=== PATIENT | female | born 1955 | race Caucasian/White ===

== ENCOUNTER 2016-09-20 10:00 | Inpatient (IN) ==
[2016-09-20] MEDS ORDERED: SODIUM CHLORIDE 0.9% 1,000 ML IV STA (10:27)
[2016-09-20] MEDS ORDERED: PIPERACILLIN/TAZOBACTAM 3,375 MG in SODIUM CHLORIDE 0.9% 100 ML IV STA (10:40)
--- NOTE | 2016-09-20 11:00 | CT Report ---
Referring physician: Jovany Elise EXAM: CT abdomen and pelvis without contrast DATE: September 20, 2016 COMPARISON: CT abdomen and pelvis without contrast January 06, 2015 REASON: Abdominal distention and generalized abdominal pain, no bowel sounds TECHNIQUE: Axial images of the abdomen and pelvis were obtained without the use of contrast. Coronal and sagittal reformatted images were also provided. Total DLP is 670.0 mGy*cm. FINDINGS: Lower thorax: There are patchy opacities within the right middle lobe and right lower lobe and mild scattered opacities within the left lower lung zone. This is concerning for pneumonia and atelectasis. ABDOMEN: Liver: Unremarkable. Gallbladder and bile ducts: The patient is status post cholecystectomy. The common bile duct is upper normal in size but stable, likely secondary to the cholecystectomy status. Pancreas: Unremarkable. Spleen: Unremarkable. Adrenals: Unremarkable. Kidneys and ureters: No hydronephrosis is present, and no ureteral calculi are seen. There is minimal calcification at the right renal hilum, which is favored to be vascular. No definite renal calculi are seen. PELVIS: Bladder: The bladder is just distended but otherwise unremarkable. Reproductive: The uterus is not identified, suggesting hysterectomy. The ovaries are also not identified. ABDOMEN AND PELVIS: Bowel: The colon is mildly distended with air and mild fluid. This likely represents mild ileus. No definite bowel inflammation is seen. Appendix: The appendix is unremarkable. Vasculature: The abdominal aorta is normal in size. There is mild to moderate scattered calcified plaque at the arteries. Surgical change is seen at the right groin, and there is a stent at the right SFA. Peritoneum: No free air or ascites is seen. Lymph nodes: No suspicious adenopathy is seen. Abdominal/pelvic wall: There is surgical change at the right groin as mentioned above. There is also mild anasarca at the pelvis. Bones: There is multilevel degenerative change at the spine, mainly an at L2-L3. No acute osseous process is seen. IMPRESSION: 1. The colon is mildly distended with air and mild fluid. This likely represents mild ileus. 2. There are patchy opacities within the right middle lobe and right lower lobe and mild scattered opacities within the left lower lung zone. This likely represents pneumonia and atelectasis. Follow-up is recommended to confirm resolution. 3. Distended bladder. The CT exam was performed using one or more of the following dose reduction techniques: Automated exposure control and adjustment of the mA and/or kV according to patient size. PROCEDURE INTERPRETED AT [facility] DEPARTMENT OF RADIOLOGY Final Report Signed by: Dr. Yvrose Heart
--- NOTE | 2016-09-20 11:10 | Emergency Department Note ---
Olamide Burt Hilary, am scribing for, and in the presence of, Jovany Elise MD 10:25. Arik Burt Phillip K, MD, personally performed the services described in this documentation, ascribed by Claudia Quiñonez in my presence, and it is both accurate and complete . Arrival - Arrival Chief Complaint: Altered Mental Status Stated Complaint: Right side weakness ED Nursing Triage Note: Brought in by EMS-transfer from [place] ED for further evaluation of possible CVA. Last known well time 09/19/16 @ 2200. reports right side weakness and slurred speech. EMS reports that patient presented there with a 103 temp and sat in the 80's. Mode of Arrival: Stretcher Limitations: Altered Mental Status Source: Significant other (), EMS, RN Notes Reviewed - History of Present Illness HPI Narrative: Pt is a 61 y/o female brought into the ED via EMS transferred from [place] ED for further evaluation of possible CVA. Hx is limited due to AMS. Pts is in the room and confirms slurred speech and generalized weakness and Pt confirms abdominal pain. He states she wasn't feeling well last night so she went to bed and Last known well time 09/19/16 @ 2200. EMS reports that patient presented there with a 103 temp and sat in the 80's at [place] ED. Pt has a PMHx of HTN, Dyslipidemia, IDDM, Fibromyalgia. Onset (ago): hour(s) Date of Last Menstrual Period: hysterectomy Allergies/Adverse Reactions: Allergies Allergy/AdvReac Type Severity Reaction Status Date / Time azithromycin Allergy Intermediate RASH Verified 12/03/14 13:30 nitrofurantoin Allergy Intermediate RASH Verified 12/03/14 13:30 [From Macrobid] sulfamethoxazole Allergy Intermediate RASH Verified 12/03/14 13:30 [From Bactrim] trimethoprim [From Bactrim] Allergy Intermediate RASH Verified 12/03/14 13:30 Home Medications: Home Medications Medication Instructions Recorded Confirmed Type Aspirin EC Tab 325 mg PO DAILY 01/07/15 09/20/16 History Carvedilol [Coreg] 25 mg PO BID 01/07/15 09/20/16 History Cilostazol [Pletal] 50 mg PO BID 01/07/15 09/20/16 History Clopidogrel [Plavix] 75 mg PO DAILY 01/07/15 09/20/16 History Duloxetine HCl [Cymbalta] 60 mg PO BID 01/07/15 09/20/16 History Furosemide Tab [Lasix Tab] 40 mg PO BID 01/07/15 09/20/16 History Nitroglycerin [Nitroglycerin SL 0.4 mg SL Q5M PRN #25 tablet 01/07/15 09/20/16 Rx Tab] Pantoprazole Tab [Protonix Tab] 40 mg PO DAILY 01/07/15 09/20/16 History Pregabalin [Lyrica] 150 mg PO BID 01/07/15 09/20/16 History Tramadol HCl [Tramadol Tab] 50 mg PO TID PRN 01/07/15 09/20/16 History Zolpidem [Ambien] 10 mg PO BEDTIME PRN 01/07/15 09/20/16 History Allopurinol 300 mg PO DAILY 09/20/16 09/20/16 History Apixaban [Eliquis] 5 mg PO BID 09/20/16 09/20/16 History Insulin Degludec [Tresiba 30 unit SUBCUT BEDTIME 09/20/16 09/20/16 History Flextouch U-200] Liraglutide [Victoza 3-Yovany] 1.2 mg SUBCUT QAM 09/20/16 09/20/16 History Ondansetron Tab [Zofran Tab] 4 mg PO Q4H PRN 09/20/16 09/20/16 History Pravastatin Sodium 80 mg PO BEDTIME 09/20/16 09/20/16 History Spironolactone 25 mg PO DAILY 09/20/16 09/20/16 History fentaNYL 25 MCG/HR PATCH 1 patch TRANSDERM Q3DAY 09/20/16 09/20/16 History [Duragesic 25 Patch] Review of System - Review of System ROS unobtainable: due to mental status 12 point system: reviewed and no additional remarkable complaints except as stated - Review of System Constitutional: Present: weakness, other (slurred speech). Absent: fever Gastrointestinal: Present: abdominal pain Medical,Surgical,& Family Hx - Medical History Cardio: History of: Hypertension Endocrine: History of: Diabetes Mellitus (IDDM), Dyslipidemia Rheumatology: History of;: Fibromyalgia Respiratory: History of: Obstructive Sleep Apnea - Surgical History Cardiac Surgeries: Sugical HX of: Cardiac Catheterization (stents) Reproductive Surgeries: Patient denies;: Gynecologic Surgery - Family History Family History: Reports;: Family Cancer (MOTHER), Family Diabetes (MOTHER), Family Heart Disease (MOTHER) - Social History Smoking Status: Unknown if ever smoked Frequency of Alcohol Use: Unknown Type of Drug Use: Unknown Exam Vital Signs: Vital Signs Temperature 97.9 F 09/20/16 10:05 Pulse Rate 95 H 09/20/16 10:30 Respiratory Rate 11 L 09/20/16 10:30 Blood Pressure 102/69 09/20/16 10:30 O2 Sat by Pulse Oximetry 96 09/20/16 10:30 - General General appearance: in no apparent distress, lethargic - Head Head exam: Present: atraumatic, normocephalic - Eye Eye exam: Present: normal appearance, PERRL, EOMI - ENT ENT exam: Present: mucous membranes dry, TM's normal bilaterally - Neck Neck exam: Present: full ROM, trachea midline. Absent: tenderness - Chest Chest inspection: Present: symmetric chest wall rise. Absent: tenderness - Respiratory Respiratory exam: Present: normal lung sounds bilaterally. Absent: respiratory distress - Cardiovascular Cardiovascular exam: Present: regular rate, normal rhythm, normal heart sounds. Absent: murmur, rubs, gallop - Abdominal Exam Abdominal exam: Present: soft, distention, tenderness, diminished bowel sounds ( no bowel sounds and the ones heard are high pitched) - Extremities Exam Extremities exam: Present: full ROM. Absent: tenderness - Back Exam Back exam: Present: full ROM. Absent: tenderness - Neurological Exam Neurological exam: Present: alert, oriented X3, CN II-XII intact. Absent: motor sensory deficit - Psychiatric Psychiatric exam: Present: normal affect, normal mood - Skin Skin exam: Present: warm, dry, intact, normal color. Absent: rash Course Course Narrative: Patient discussed with the hospitalist. Patient was transferred up here for evaluation of possible CVA. Patient's CT at [place] showed no obvious CVA. On arrival here she had a distended abdomen and was hypotensive. I feel that she has pneumonia in the right lung and possible early sepsis. Her lactate level there at [place] was negative. Results - Labs Lab Results: I have reviewed the patients labs (Labs reviewed from [place].) - Diagnostic Findings Procedure: CT Abdomen and Pelvis: report reviewed by me (1. The colon is mildy distended with air and mild fluid. This likely represents mild ileus 2. There are patchy opacities within the right middle lobe and right lower lobe and mild scattered opacities within the left lower lung zone. This likely represents pneumonia and atelectasis. Follow-up is recommended to confirm resolution. Distended bladder ) Disposition Clinical Impression: Right middle and lower lobe pneumonia, Possible sepsis, Hypotension Case discussed with: patient, patient's family Disposition: Still a Patient Condition: Critical Additional Instructions: Admit to the hospitalist.
[2016-09-20 11:17] LABS: Basophils % 0.3 % (0.0-0.8); Eosinophils # 0.1 10*3/uL (0.0-0.87); Eosinophils % 0.4 % (0.00-10.9); Hematocrit 31.9 VOL% (35.7-47.0); Hemoglobin 10.6 GM/DL (12.0-16.0); Immature Granulocytes % 0.4 %; Immature Granulocytes Absolute 0.06 #; Lymphocytes # 2.1 10*3/uL (1.4-4.0); Lymphocytes % 14.2 % (21.3-54.2); Mean Corpuscular HGB Conc 33.2 GM/DL (32-36); Mean Corpuscular Hemoglobin 27 PG (27-34); Mean Corpuscular Volume 81.8 FL (87-102); Monocytes # 0.5 10*3/uL (0.11-0.8); Monocytes % 3.2 % (1.7-12.7); Neutrophils # 11.9 10*3/uL (1.4-7.4); Neutrophils % 81.5 % (38.7-73.9); Platelet Count 194 T/CUMM (130-400); Red Cell Distribution Width 14.5 % (9.3-17.3); White Blood Count 14.5 T/CUMM (4-12)
[2016-09-20] MEDS ORDERED: PIPERACILLIN/TAZOBACTAM 3,375 MG VIAL IV ONE (11:26)
[2016-09-20] MEDS ORDERED: SODIUM CHLORIDE 0.9% 100 ML IV ONE (11:26)
[2016-09-20 11:32] LABS: Apearance,Urine CLEAR (Clear); Bacteria,Urine Many /HPF (Few); Bilirubin,Urine Negative (Negative); Blood, Urine Negative (Negative); Glucose,Urine (UA) Negative (Negative); Ketones,Urine Negative (Negative); Mucus,Urine Many /LPF (Occasional); Nitrite,Urine Negative (Negative); Protein,Urine Negative; Urine Color Yellow (Yellow); Urine Specific Gravity 1.005 (1.001-1.035); Urine Urobilinogen < 2.0 EU/DL (0.2-1.0); WBC,Urine 1 /HPF (0-6)
[2016-09-20 11:34] LABS: Albumin 3.3 G/DL (3.4-5.0); Bilirubin,Total 0.4 MG/DL (0.2-1.0); Calcium 7.6 MG/DL (8.5-10.1); Total Protein 6.6 G/DL (6.4-8.3)
[2016-09-20 11:35] LABS: Magnesium 0.9 MG/DL (1.8-2.4); Osmolality,Calculated 288.5 MOS/KG (273-304)
[2016-09-20] MEDS ORDERED: ONDANSETRON 4 MG/2 ML VIAL IV PRN (12:42)
[2016-09-20] MEDS ORDERED: ACETAMINOPHEN 325 MG TABLET PO PRN (12:42)
[2016-09-20] MEDS ORDERED: GLUCAGON 1 MG VIAL IM PRN (12:46)
[2016-09-20] MEDS ORDERED: DEXTROSE 50% 25 GM/50 ML VIAL IV PRN (12:46)
--- NOTE | 2016-09-20 12:47 | Hospitalist History & Physical ---
<GipsyJohnny nayak - Last Filed: 09/20/16 12:36> Assessment and Plan - Time spent with patient Time spent with patient: Less than 30 minutes (1) Sepsis Status: Acute Assessment and plan: Patient was hypotensive with systolic as low as 86. White count 14.5. Blood cultures and lactic acid have been ordered. Patient was started on empiric Zosyn and Levaquin IV. Continue IV fluids. Current Visit: Yes (2) Abdominal pain Status: Acute Assessment and plan: Abdominal CT performed on admission reveals mild ileus. Patient has been started on clear liquid diet. Continue IV fluids. NG decompression versus surgical consult. Current Visit: No (3) Pneumonia Status: Acute Assessment and plan: Patient started on both IV Zosyn and Levaquin. Repeat chest x-ray 48 hours. Current Visit: Yes (4) Congestive heart failure (CHF) Status: Acute Current Visit: Yes (5) Diabetes mellitus Status: Acute Assessment and plan: Serum glucose 198. Accu-Cheks ACHS. Sliding scale insulin per protocol. Current Visit: Yes (6) Hypotension Status: Acute Assessment and plan: Patient had a total of 3 L of IV fluids between [facility] and [place] [facility]. Patient has been started on Levophed drip Current Visit: Yes History of Present Illness Chief complaint: Generalized weakness, sepsis History of present illness: Ms. Romo is a 61 year old female with a past medical history significant for hypertension, diabetes, congestive heart failure who presents to the [place] ED as a transfer from [facility] for further evaluation of possible CVA. Upon further evaluation, the patient was found to have generalized weakness. Head CT from external facility findings showed no evidence of hemorrhage, mass or extracerebral collection, however superimposed ischemic infarction cannot be excluded. On exam, the patient does awake to verbal stimuli and responds to painful stimuli. ROS is difficult to ascertain however patient does complain of generalized abdominal pain. Patient's is at bedside and assisted with most of the history. He stated the patient was last known to be well around 2200 yesterday. She had been being treated outpatient with Rocephin injections for Salmonella infection. notes that her last injection was yesterday. He also states that the patient seemed to be getting better until this morning when she was not herself, confused and her speech was difficult to understand. Patient was hypotensive on admission and has received a total of 3 L of IV fluids. She was found to have an elevated white count of 14.5 as well as mildly increased BUN and creatinine of 29 and 1.40. After discussion with Dr. Elise, ER physician, and Dr. Gonsalez, admitting physician, it was decided that the patient will be admitted to the ICU for further evaluation and treatment. Patient is a full code. Her is her healthcare proxy. Home Medications Medication Instructions Recorded Confirmed Type Aspirin EC Tab 325 mg PO DAILY 01/07/15 09/20/16 History Carvedilol [Coreg] 25 mg PO BID 01/07/15 09/20/16 History Cilostazol [Pletal] 50 mg PO BID 01/07/15 09/20/16 History Clopidogrel [Plavix] 75 mg PO DAILY 01/07/15 09/20/16 History Duloxetine HCl [Cymbalta] 60 mg PO BID 01/07/15 09/20/16 History Furosemide Tab [Lasix Tab] 40 mg PO BID 01/07/15 09/20/16 History Nitroglycerin [Nitroglycerin SL 0.4 mg SL Q5M PRN #25 tablet 01/07/15 09/20/16 Rx Tab] Pantoprazole Tab [Protonix Tab] 40 mg PO DAILY 01/07/15 09/20/16 History Pregabalin [Lyrica] 150 mg PO BID 01/07/15 09/20/16 History Tramadol HCl [Tramadol Tab] 50 mg PO TID PRN 01/07/15 09/20/16 History Zolpidem [Ambien] 10 mg PO BEDTIME PRN 01/07/15 09/20/16 History Allopurinol 300 mg PO DAILY 09/20/16 09/20/16 History Apixaban [Eliquis] 5 mg PO BID 09/20/16 09/20/16 History Insulin Degludec [Tresiba 30 unit SUBCUT BEDTIME 09/20/16 09/20/16 History Flextouch U-200] Liraglutide [Victoza 3-Yovany] 1.2 mg SUBCUT QAM 09/20/16 09/20/16 History Ondansetron Tab [Zofran Tab] 4 mg PO Q4H PRN 09/20/16 09/20/16 History Pravastatin Sodium 80 mg PO BEDTIME 09/20/16 09/20/16 History Spironolactone 25 mg PO DAILY 09/20/16 09/20/16 History fentaNYL 25 MCG/HR PATCH 1 patch TRANSDERM Q3DAY 09/20/16 09/20/16 History [Duragesic 25 Patch] Allergies Allergy/AdvReac Type Severity Reaction Status Date / Time azithromycin Allergy Intermediate RASH Verified 12/03/14 13:30 nitrofurantoin Allergy Intermediate RASH Verified 12/03/14 13:30 [From Macrobid] sulfamethoxazole Allergy Intermediate RASH Verified 12/03/14 13:30 [From Bactrim] trimethoprim [From Bactrim] Allergy Intermediate RASH Verified 12/03/14 13:30 Medical,Surgical,& Family Hx - Medical History Cardio: History of: CHF, CAD, Hypertension Endocrine: History of: Diabetes Mellitus (IDDM), Dyslipidemia Rheumatology: History of;: Fibromyalgia Respiratory: History of: Obstructive Sleep Apnea - Surgical History Cardiac Surgeries: Sugical HX of: Cardiac Catheterization (stents) Reproductive Surgeries: Patient denies;: Gynecologic Surgery - Family History Family History: Reports;: Family Cancer (MOTHER), Family Diabetes (MOTHER), Family Heart Disease (MOTHER) - Social History Smoking Status: Never smoker Have you smoked in the last 12 months: No Frequency of Alcohol Use: None Type of Drug Use: None Marital Status: Lives With:: Spouse Functional capacity: independent ambulation ROS unobtainable: due to encephalopathy - Gastrointestinal Gastrointestinal: Present: abdominal pain - Hematologic/Lymphatic Hematologic/Lymphatic: Present: easy bleeding, easy bruising Exam - Constitutional Vitals: Period Temp Pulse Resp BP Sys/Lozoya Pulse Ox Last 24 Hr 97.9 F-97.9 F 90-101 10-16 77-113/59-74 93-96 Exam: General appearance: obese, lethargic - Head Head exam: Present: normocephalic, atraumatic - Eye Eye exam: Present: EOMI. Absent: conjunctival injection, nystagmus Pupils: Present: HOWIE, normal accommodation - ENT ENT exam: Present: normal exam, normal external ear exam - Neck Neck exam: Present: normal inspection. Absent: lymphadenopathy, tenderness, thyromegaly - Respiratory Respiratory exam: Present: clear to auscultation bilaterally. Absent: rales, rhonchi, wheezes - Cardiovascular Cardiovascular exam: Present: regular rate and rhythm. Absent: carotid bruit, gallop, rubs - GI/Abdominal GI/Abdominal exam: Present: normal bowel sounds. Absent: ascites, distended, mass - Extremities Exam Extremities exam: Present: normal inspection, normal capillary refill. Absent: edema - Neurological Exam Neurological exam: Present: arousable to verbal stimulation, lethargic - Psychiatric Psychiatric exam: Present: unable to assess d/t lethargy - Skin Skin exam: Present: normal color, warm, dry Results - Labs CBC & BMP: 09/20/16 10:47 09/20/16 10:47 Lab Results: I have reviewed the past 24 hour labs - EKG EKG results: interpreted by ERMD - Diagnostic Findings Procedure: CT Abdomen and Pelvis: image reviewed by me, report reviewed by me Quality Measures - Stroke Presenting Symptoms: Right hemiparesis <Xenia Gonsalez - Last Filed: 09/20/16 14:32> Assessment and Plan (1) Septic shock Status: Acute Assessment and plan: NS 3 liters, zosyn and levaquin IV, will use levophed prn hypotension. Infection due to pneumonia Current Visit: Yes (2) Ileus Status: Acute Assessment and plan: thought to be secondary to salmonella, already received treatment, reglan IV, protonix IV Current Visit: Yes (3) Bladder distention Status: Acute Assessment and plan: bailey placed, Dr Rohan Richardson consulted Current Visit: Yes (4) Hypotension Status: Acute Current Visit: Yes (5) Pneumonia Status: Acute Current Visit: Yes (6) Congestive heart failure (CHF) Status: Acute Assessment and plan: echocardiogram Current Visit: Yes (7) Diabetes mellitus Status: Acute Current Visit: Yes History of Present Illness Chief complaint: ams History of present illness: Ms. Romo is a 61 year old female seen and examined, History and physical reviewed and edited. Patient is lethargic with a CO2 of 55. Patient has untreated sleep apnea. is at bedside reports patient treated for Salmonella for 1 week. She has had diarrhea up until about 3 days ago and now she has not had any bowel movements. Patient has had 3 L of fluid and her blood pressure is stable. She does have a history of congestive heart failure. Exam - Constitutional Vitals: Period Temp Pulse Resp BP Sys/Lozoya Pulse Ox Last 24 Hr 97.8 F-97.9 F 88-101 10-16 77-120/59-74 93-97 Exam: Patient has high-pitched bowel sounds and is diffusely tender peer Results - Labs CBC & BMP: 09/20/16 10:47 09/20/16 10:47 - Diagnostic Findings Procedure: CT Abdomen and Pelvis: report reviewed by me (Ileus no obstruction, bladder retention)
[2016-09-20] MEDS ORDERED: ENOXAPARIN 40 MG/0.4 ML SYRINGE SUBCUT SCH (13:00)
[2016-09-20] MEDS ORDERED: NOREPINEPHRINE 8 MG in SODIUM CHLORIDE 0.9% 242 ML IV SCH (13:00)
[2016-09-20 13:12] LABS: ABG Base Excess 0.1 MMOL/L (-2.5-2.5); ABG HCO3 24.4 MMOL/L (20-26); ABG PCO2 55.1 MM HG (35-48); ABG PH 7.303 (7.35-7.45); ABG PO2 75.5 MM HG (80-95); ABG TCO2 25.1 MMOL/L (23-27)
[2016-09-20] MEDS ORDERED: LEVOFLOXACIN INJ 750 MG in PREMIX 1 EACH IV SCH (14:00)
--- NOTE | 2016-09-20 17:20 | Magnetic Resonance Report ---
MR head/brain wo con Indication: Left-sided weakness. Slurring of speech. Comparison: CT head 09/20/2016. Technique: Using 1.5 Irene magnet, multisequence multiplanar MR imaging of the brain was performed without the administration of intravenous contrast. Findings: There is no evidence of restricted diffusion. Sagittal T1 sequence demonstrates partially empty sella. The optic nerve is unremarkable in appearance. Corpus callosum is intact. Axial sequences demonstrate no evidence of intracranial mass or hemorrhage. Ventricles are symmetric in appearance. Basal cisterns are patent. The arterial flow voids demonstrate no significant abnormalities. Bilateral areas of increased T2 and FLAIR signal within the paraventricular white matter are moderate and could BE considered compatible with microvascular ischemia. Ventricular system demonstrates no evidence of acute pathology. The basal cisterns appear patent. The arterial flow voids appear intact. The posterior fossa as well as cerebellum demonstrate no evidence of acute pathology. The orbits and globes demonstrate no evidence of acute pathology. The paranasal sinuses and mastoid air cells demonstrate no evidence of significant mucoperiosteal thickening. The calvarium as well as the soft tissues overlying the calvarium demonstrate no evidence of acute pathology. Impression: 1. Generalized atrophy and findings considered compatible with microvascular ischemia are demonstrated. There is no evidence of acute intracranial pathology. 09/20/2016 5:15 PM PROCEDURE INTERPRETED AT [facility] DEPARTMENT OF RADIOLOGY Final Report Signed by: Dr. Curly Peterson
[2016-09-20] MEDS: PIPERACILLIN/TAZOBACTAM 3,375 MG in SODIUM CHLORIDE 0.9% 100 ML IV SCH ×2 (18:21→21:09)
[2016-09-20] MEDS: INSULIN LISPRO 100 UNIT/ML SUBCUT SCH ×2 (18:21→21:09)
[2016-09-20] MEDS: APIXABAN 5 MG TABLET PO SCH ×3 (18:29→21:09)
[2016-09-20] MEDS: METOCLOPRAMIDE 10 MG/2 ML VIAL IV SCH ×2 (18:29→23:41)
[2016-09-20] MEDS: PANTOPRAZOLE 40 MG VIAL IV SCH ×2 (18:29→21:08)
[2016-09-20] MEDS: SODIUM CHLORIDE 0.9% 2,500 ML IV ONE ×2 (18:32→21:44)
--- NOTE | 2016-09-20 18:42 | Urology Consultation ---
Assessment and Plan - Time spent with patient Time spent with patient: Less than 30 minutes (1) Bladder distention Status: Acute Assessment and plan: Leave [facility] until she gets out of the ICU and give her a voiding trial. Current Visit: Yes History of Present Illness - Data of Consult Patient: new to practice Consult date: 09/20/16 Requesting Physician: Xenia Gonsalez - Consult Narrative Reason for consult: Urinary retention History of present illness: Ms. Romo is a 61 year old female who was apparently at [facility] and then transferred [facility] thought she had a CVA but apparently she has pneumonia. But potentially as urinary tract infection. She was in urinary retention. She is in ICU and improving. Her urine is clear. It is very cloudy and has a lot of sediment. Cultures are pending. Her CT scan shows normal upper tracts. I recommend we just leave the catheter until she resolves from an in and out and give her a voiding trial. CC: Xenia Gonsalez MD - Home Medications and Allergies Home Medications: Home Medications Medication Instructions Recorded Confirmed Type Aspirin EC Tab 325 mg PO DAILY 01/07/15 09/20/16 History Carvedilol [Coreg] 25 mg PO BID 01/07/15 09/20/16 History Cilostazol [Pletal] 50 mg PO BID 01/07/15 09/20/16 History Clopidogrel [Plavix] 75 mg PO DAILY 01/07/15 09/20/16 History Duloxetine HCl [Cymbalta] 60 mg PO BID 01/07/15 09/20/16 History Furosemide Tab [Lasix Tab] 40 mg PO BID 01/07/15 09/20/16 History Nitroglycerin [Nitroglycerin SL 0.4 mg SL Q5M PRN #25 tablet 01/07/15 09/20/16 Rx Tab] Pantoprazole Tab [Protonix Tab] 40 mg PO DAILY 01/07/15 09/20/16 History Pregabalin [Lyrica] 150 mg PO BID 01/07/15 09/20/16 History Tramadol HCl [Tramadol Tab] 50 mg PO TID PRN 01/07/15 09/20/16 History Zolpidem [Ambien] 10 mg PO BEDTIME PRN 01/07/15 09/20/16 History Allopurinol 300 mg PO DAILY 09/20/16 09/20/16 History Apixaban [Eliquis] 5 mg PO BID 09/20/16 09/20/16 History Insulin Degludec [Tresiba 30 unit SUBCUT BEDTIME 09/20/16 09/20/16 History Flextouch U-200] Liraglutide [Victoza 3-Yovany] 1.2 mg SUBCUT QAM 09/20/16 09/20/16 History Ondansetron Tab [Zofran Tab] 4 mg PO Q4H PRN 09/20/16 09/20/16 History Pravastatin Sodium 80 mg PO BEDTIME 09/20/16 09/20/16 History Spironolactone 25 mg PO DAILY 09/20/16 09/20/16 History fentaNYL 25 MCG/HR PATCH 1 patch TRANSDERM Q3DAY 09/20/16 09/20/16 History [Duragesic 25 Patch] Allergies/Adverse Reactions: Allergies Allergy/AdvReac Type Severity Reaction Status Date / Time azithromycin Allergy Intermediate RASH Verified 12/03/14 13:30 nitrofurantoin Allergy Intermediate RASH Verified 12/03/14 13:30 [From Macrobid] sulfamethoxazole Allergy Intermediate RASH Verified 12/03/14 13:30 [From Bactrim] trimethoprim [From Bactrim] Allergy Intermediate RASH Verified 12/03/14 13:30 Exam - Constitutional Vitals: Period Temp Pulse Resp BP Sys/Lozoya Pulse Ox Last 24 Hr 97.8 F 81-90 11-97 90-120/47-84 96-98 Results - Labs CBC & BMP: 09/20/16 10:47 09/20/16 10:47
[2016-09-20] MEDS: SODIUM CHLORIDE 0.9% 1,000 ML IV SCH (19:04)
[2016-09-20] MEDS ORDERED: diphenhydrAMINE 50 MG/1 ML VIAL IV PRN (19:17)
[2016-09-20] MEDS ORDERED: diphenhydrAMINE 50 MG/1 ML VIAL ONE (19:22)
[2016-09-20] MEDS: FAMOTIDINE 20 MG/2 ML VIAL IV SCH (21:08)
[2016-09-21] MEDS: SODIUM CHLORIDE 0.9% 1,000 ML IV SCH (02:05)
[2016-09-21] MEDS: PIPERACILLIN/TAZOBACTAM 3,375 MG in SODIUM CHLORIDE 0.9% 100 ML IV SCH ×3 (06:10→21:11)
[2016-09-21 06:46] LABS: Basophils % 0.3 % (0.0-0.8); Eosinophils # 0.1 10*3/uL (0.0-0.87); Eosinophils % 1.2 % (0.00-10.9); Hematocrit 29.1 VOL% (35.7-47.0); Hemoglobin 9.2 GM/DL (12.0-16.0); Immature Granulocytes % 0.9 %; Lymphocytes # 1.9 10*3/uL (1.4-4.0); Lymphocytes % 17.8 % (21.3-54.2); Mean Corpuscular HGB Conc 31.6 GM/DL (32-36); Mean Corpuscular Hemoglobin 27 PG (27-34); Mean Corpuscular Volume 84.3 FL (87-102); Mean Platelet Volume 12.3 FL (9.6-12.0); Monocytes # 0.4 10*3/uL (0.11-0.8); Monocytes % 3.9 % (1.7-12.7); Neutrophils % 75.9 % (38.7-73.9); Platelet Count 147 T/CUMM (130-400); Red Blood Count 3.45 MC/CUMM (3.8-5.5); Red Cell Distribution Width 14.6 % (9.3-17.3); White Blood Count 10.6 T/CUMM (4-12)
[2016-09-21] MEDS: METOCLOPRAMIDE 10 MG/2 ML VIAL IV SCH ×3 (07:28→18:43)
[2016-09-21 07:50] LABS: Calcium 7.1 MG/DL (8.5-10.1); Osmolality,Calculated 286.3 MOS/KG (273-304); Potassium 3.6 MMOL/L (3.5-5.1)
[2016-09-21] MEDS: FAMOTIDINE 20 MG/2 ML VIAL IV SCH ×2 (08:09→21:12)
[2016-09-21] MEDS: PANTOPRAZOLE 40 MG VIAL IV SCH ×2 (08:09→21:12)
[2016-09-21] MEDS: INSULIN LISPRO 100 UNIT/ML SUBCUT SCH ×4 (08:11→21:12)
[2016-09-21] MEDS: APIXABAN 5 MG TABLET PO SCH ×2 (08:17→21:11)
--- NOTE | 2016-09-21 12:25 | Hospitalist Progress Note ---
Assessment and Plan (1) Septic shock Status: Acute Assessment and plan: Resolved, Hep-Lock fluids, continue Zosyn for pneumonia Current Visit: Yes (2) Ileus Status: Acute Assessment and plan: secondary to resolving salmonella infection, cont reglan, clear liquid diet Current Visit: Yes (3) Bladder distention Status: Acute Assessment and plan: Dr Richardson recommends decreasing [facility] and doing bladder trials when out of ICU. Current Visit: Yes (4) Hypotension Status: Acute Assessment and plan: Due to septic shock resolved Current Visit: Yes (5) Pneumonia Status: Acute Assessment and plan: Continue Zosyn Current Visit: Yes (6) Congestive heart failure (CHF) Status: Acute Assessment and plan: echocardiogram pending Current Visit: Yes (7) Diabetes mellitus Status: Acute Assessment and plan: Blood sugars are stable Current Visit: Yes Hospitalist: Subjective Interval history: Dr. Rohan Richardson recommends leaving her [facility] and she moves out of the ICU and then would do a voiding trial. Her oxygen is too high I will DC her oxygen. I am Hep-Lock her fluids as she is adequately hydrated. Blood pressure is stable. We will move her out of the ICU. was at bedside. Patient wanted to go home and I told her now. Patient did not wear her BiPAP last night. We will have Dr. Peng to see if he can talk to her and use some sort of nasal BiPAP. Patient had redness and itching associated with Levaquin and was added to her allergy list. Exam - Constitutional Vitals: Period Temp Pulse Resp BP Sys/Lozoya Pulse Ox Last 24 Hr 97.8 F-99.1 F 81-99 10-97 90-129/47-94 93-99 Exam: Heart Rate-[RRR] Lungs-[CTAB but diminished] GI-[+bs soft, NT] Ext-[no edema] Neuro [Motor 5/5], [alert and oriented times 3] psych [normal mood and affect] General [no acute distress] Results - Labs CBC & BMP: 09/21/16 04:00 09/21/16 07:04 Lab Results: I have reviewed the past 24 hour labs Labs: Blood cultures negative no growth, urine culture gram-negative davon - Diagnostic Findings Procedure: MRI: report reviewed by me (Microvascular disease no acute strokes.) Quality Measures - Stroke Presenting Symptoms: Right hemiparesis
--- NOTE | 2016-09-21 13:01 | Physician Query Form ---
CLICK EDIT DOCUMENT TO SELECT QUERY ANSWER --> OK --> SIGN Keyonna Gale RN Clinical Supervisor [employer] W) [phone] (f) [phone] [email or web address] PROVIDERS: Make your selection(s) from the choices in EACH section by typing an "x" and enter comments in the comment section. Please use your independent medical judgment in providing your response. This request does not imply that any particular answer is desired or expected. CLINICAL INDICATORS: (Providers should not edit this section) Based on lab results of creatinine of 1.40 on admission with a GFR of 45 and decreased to 1.00. Pt. treated with IV fluids. Clarify which of the following most accurately represents the patient's renal status: ( x) Acute kidney injury (non-traumatic) ( ) Acute renal failure ( ) Acute renal failure with underlying Chronic Kidney Disease (CKD) - please provide stage below ( ) CKD - please provide stage below ( ) Other, please specify: ( ) Clinically unable to determine Chronic Kidney Disease Stages Source: National Kidney Disease Foundation ( ) Stage I (eGFR > or = 90) ( ) Stage II (eGFR 60 - 89) ( ) Stage III (eGFR 30 - 59) ( ) Stage IV (eGFR 15 - 29) ( ) Stage V (eGFR < 15 or dialysis) COMMENTS: PLEASE ALSO DOCUMENT RESPONSE IN PROGRESS NOTES AND/OR DISCHARGE SUMMARY Use of terms such as suspected, likely, or probable (associated with a specific diagnosis that is being evaluated, monitored, or treated as if it exists) are acceptable and can be restated in the discharge summary if not ruled out. MTDD
--- NOTE | 2016-09-21 14:04 | ECHO Report ---
Taya Romo 09/20/2016 Exam Date: 15:43 Referring Physician: Rosalina Moreno Technologist: SHAKIRA Age: 61 Ht (in): 66 Wt (lb): 187 FExam Location[facility] Gender: Echo [id number]: Rt sided weaknessIndications: BP: / HR: SinusRhythm: PoorTechnical Quality: IMPRESSIONS Normal LV systolic function, ejection fraction 55%. Grade 1/4 diastolic dysfunction. Mild to moderate concentric left ventricular hypertrophy. Trace mitral and tricuspid regurgitation. MEASUREMENTS (Male / Female) Normal Values 2D ECHO LV Diastolic Diameter PLAX 4.4 cm 4.2 - 5.9 / 3.9 - 5.3 cm LV Systolic Diameter PLAX 2.5 cm LV Fractional Shortening PLAX 43.4 % IVS Diastolic Thickness 1.5 cm 0.6 - 1.0 / 0.6 - 0.9 cm LVPW Diastolic Thickness 1.3 cm 0.6 - 1.0 / 0.6 - 0.9 cm RV Internal Dim ED PLAX 2.8 cm Aortic Root Diameter 2.3 cm LA Systolic Diameter LX 3.7 cm 3.0 - 4.0 / 2.7 - 3.8 cm DOPPLER TR Peak Velocity 205.0 cm/s TR Peak Gradient 16.8 mmHg FINDINGS Left Ventricle Moderately increased septal wall thickness. Mildly increased posterior wall thickness. Mild - moderate concentric left ventricular hypertrophy with diastolic dysfunction. Left ventricular ejection fraction is estimated at 50-55 %. Right Ventricle Normal right ventricular size. Right Atrium Normal right atrial size. Left Atrium Normal left atrial size. Mitral Valve Mild mitral valve sclerosis. Trace mitral valve regurgitation. Aortic Valve Mild aortic valve sclerosis without stenosis or regurgitation. Tricuspid Valve Morphologically normal tricuspid valve. Trace to mild tricuspid valve regurgitation. Tricuspid regurgitation velocities suggest a PAP of 27 mmHg. Pulmonic Valve Morphologically normal pulmonic valve. Pericardium No pericardial effusion. Aorta Normal size aortic root and proximal ascending aorta. Dariana Alicia MD (Electronically Signed) 21 Sep 2016 09:07Final Date:
[2016-09-21] MEDS ORDERED: DULoxetine 30 MG CAPSULE PO SCH (15:30)
--- NOTE | 2016-09-21 15:33 | Ultrasound Report ---
US renal Bilateral Indication: Chronic versus acute renal failure Comparison: CT of the abdomen and pelvis 09/20/2016. Technique: Using transcutaneous probe, routine renal ultrasound was performed. Ultrasound images were captured and stored. Findings: Right kidney measures 12.6 image cranial caudal dimension. Lower pole cyst measuring 8 x 10 x 7 mm present. Left kidney measures 12.0 cm in craniocaudal dimension. No hydronephrosis perinephric fluid or nephrolithiasis is demonstrated. Calcification demonstrated in the right renal hilum on comparison CT is not identified on ultrasound. The liver appears slightly hyperechoic compared to the right renal cortex. This finding is nonspecific but could reflect evidence of hepatic steatosis. Impression: 1. Lower pole cyst right kidney is present as detailed. 2. No hydronephrosis, perinephric fluid, or nephrolithiasis is suggested. 09/21/2016 3:26 PM PROCEDURE INTERPRETED AT [facility] Final Report Signed by: Dr. Curly Peterson
[2016-09-21] MEDS: ASPIRIN EC 81 MG TABLET PO SCH (16:05)
[2016-09-21] MEDS: CLOPIDOGREL 75 MG TABLET PO SCH (16:06)
[2016-09-21] MEDS: BISACODYL 5 MG TABLET PO SCH (16:06)
[2016-09-21] MEDS: POTASSIUM CHLORIDE RIDER 10 MEQ in PREMIX 1 EACH IV SCH ×3 (16:08→23:52)
[2016-09-21] MEDS ORDERED: ACETAMINOPHEN 325 MG TABLET PO PRN (17:51)
[2016-09-21 18:13] LABS: ABG Base Excess 1.7 MMOL/L (-2.5-2.5); ABG HCO3 25.9 MMOL/L (20-26); ABG Oxygen Saturation 91.7 % (95-100); ABG PCO2 43.9 MM HG (35-48); ABG PH 7.395 (7.35-7.45); ABG PO2 60.9 MM HG (80-95); ABG TCO2 24.8 MMOL/L (23-27)
[2016-09-21] MEDS: IBUPROFEN 600 MG TABLET PO PRN (18:19)
--- NOTE | 2016-09-21 19:42 | Sleep Medicine Consult ---
Assessment and Plan (1) Obstructive sleep apnea Status: Acute Assessment and plan: This patient does have a history of obstructive sleep apnea in the past but was poorly compliant with CPAP. She currently is on BiPAP and we will switch her to an auto titration mode. I stressed the importance of follow-up in the sleep clinic for treatment of her severe sleep apnea. Thank you for this consult and the opportunity to participate in her care. Current Visit: Yes (2) Congestive heart failure (CHF) Status: Acute Assessment and plan: Untreated sleep apnea can be an exacerbating factor to both diastolic and systolic congestive heart failure. Treatment of sleep apnea can help with management of CHF in these cases. Current Visit: Yes (3) Diabetes mellitus Status: Acute Assessment and plan: The prevalence rate for obstructive sleep apnea in patients with type 2 diabetes can be as high as 86%. Those patients with moderate to severe obstructive sleep apnea are at a greater risk for diabetic nephropathy and neuropathy. Compliance with CPAP therapy for these patients can lead to improvement in glycemic control and improvement in insulin sensitivity. Current Visit: Yes History of Present Illness Chief complaint: Obstructive sleep apnea History of present illness: Ms. Romo is a 61 year old female admitted with septic shock. She has a history of obstructive sleep apnea diagnosed in October [address] Euceda with severe obstructive sleep apnea, having an AHI of 39.9. She was titrated and placed on CPAP of 5 cm but was poorly compliant. She never returned for follow- up in the sleep clinic. I actually saw her in consultation in August 2013 for pneumonia. We will readdress to her obstructive sleep apnea at that time and need for follow-up in sleep clinic and compliance with CPAP. She did not return. She has been placed on a BiPAP device since admission and seems to be doing better with a nasal wisp mask. We will see if we can get her switched to an auto titration mode and follow-up her results. Home Medications Medication Instructions Recorded Confirmed Type Aspirin EC Tab 325 mg PO DAILY 01/07/15 09/20/16 History Carvedilol [Coreg] 25 mg PO BID 01/07/15 09/20/16 History Cilostazol [Pletal] 50 mg PO BID 01/07/15 09/20/16 History Clopidogrel [Plavix] 75 mg PO DAILY 01/07/15 09/20/16 History Duloxetine HCl [Cymbalta] 60 mg PO BID 01/07/15 09/20/16 History Furosemide Tab [Lasix Tab] 40 mg PO BID 01/07/15 09/20/16 History Nitroglycerin [Nitroglycerin SL 0.4 mg SL Q5M PRN #25 tablet 01/07/15 09/20/16 Rx Tab] Pantoprazole Tab [Protonix Tab] 40 mg PO DAILY 01/07/15 09/20/16 History Pregabalin [Lyrica] 150 mg PO BID 01/07/15 09/20/16 History Tramadol HCl [Tramadol Tab] 50 mg PO TID PRN 01/07/15 09/20/16 History Zolpidem [Ambien] 10 mg PO BEDTIME PRN 01/07/15 09/20/16 History Allopurinol 300 mg PO DAILY 09/20/16 09/20/16 History Apixaban [Eliquis] 5 mg PO BID 09/20/16 09/20/16 History Insulin Degludec [Tresiba 30 unit SUBCUT BEDTIME 09/20/16 09/20/16 History Flextouch U-200] Liraglutide [Victoza 3-Yovany] 1.2 mg SUBCUT QAM 09/20/16 09/20/16 History Ondansetron Tab [Zofran Tab] 4 mg PO Q4H PRN 09/20/16 09/20/16 History Pravastatin Sodium 80 mg PO BEDTIME 09/20/16 09/20/16 History Spironolactone 25 mg PO DAILY 09/20/16 09/20/16 History fentaNYL 25 MCG/HR PATCH 1 patch TRANSDERM Q3DAY 09/20/16 09/20/16 History [Duragesic 25 Patch] Allergies Allergy/AdvReac Type Severity Reaction Status Date / Time azithromycin Allergy Intermediate RASH Verified 12/03/14 13:30 levofloxacin [From Levaquin] Allergy Intermediate ITCHING Verified 09/20/16 19: 57 nitrofurantoin Allergy Intermediate RASH Verified 12/03/14 13:30 [From Macrobid] sulfamethoxazole Allergy Intermediate RASH Verified 12/03/14 13:30 [From Bactrim] trimethoprim [From Bactrim] Allergy Intermediate RASH Verified 12/03/14 13:30 Review of systems: Bedtime is usually at 10:50 PM and wakeup time is 9 AM. She usually feels refreshed during the day. Exam (Pulmonay) H&P - Constitutional Vitals: Period Temp Pulse Resp BP Sys/Lozoya Pulse Ox Last 24 Hr 97.6 F-102.4 F 81-99 13-21 98-136/47-98 93-99 Exam: She is alert and responsive in no acute distress at present. HEENT unremarkable. Oropharynx with class III Mallampati exam. Neck supple without adenopathy or thyromegaly. No supraclavicular adenopathy is noted. Chest with symmetrical breath sounds without focal wheeze, rhonchi, or rales. Cardiac exam reveals a regular rhythm without murmur or gallop. Abdomen soft nontender without palpable hepatosplenomegaly or mass. Extremities are without clubbing, cyanosis, or edema. Neurologically, she is grossly intact. Medical,Surgical,& Family Hx - Medical History Cardio: History of: CHF, CAD, Hypertension Endocrine: History of: Diabetes Mellitus (IDDM), Dyslipidemia Rheumatology: History of;: Fibromyalgia Respiratory: History of: Obstructive Sleep Apnea - Surgical History Cardiac Surgeries: Sugical HX of: Cardiac Catheterization (stents) Reproductive Surgeries: Patient denies;: Gynecologic Surgery - Family History Family History: Reports;: Family Cancer (MOTHER), Family Diabetes (MOTHER), Family Heart Disease (MOTHER) - Social History Smoking Status: Never smoker Frequency of Alcohol Use: None Type of Drug Use: None Results - Labs CBC & BMP: 09/21/16 04:00 09/21/16 07:04 Lab Results: I have reviewed the past 24 hour labs Quality Measures - Stroke Presenting Symptoms: Right hemiparesis
[2016-09-21] MEDS: VICTOZA SUBCUT SCH (20:05)
[2016-09-21] MEDS ORDERED: LORazepam 2 MG/1 ML VIAL IV PRN (20:51)
[2016-09-21] MEDS: CILOSTAZOL 50 MG TABLET PO SCH (21:10)
[2016-09-21] MEDS: PRAVASTATIN 40 MG TABLET PO SCH (21:10)
[2016-09-21] MEDS: DULoxetine 30 MG CAPSULE PO SCH (21:11)
[2016-09-22] MEDS: METOCLOPRAMIDE 10 MG/2 ML VIAL IV SCH ×4 (00:35→19:25)
[2016-09-22] MEDS: PIPERACILLIN/TAZOBACTAM 3,375 MG in SODIUM CHLORIDE 0.9% 100 ML IV SCH ×2 (05:25→12:55)
[2016-09-22 06:38] LABS: Basophils % 0.2 % (0.0-0.8); Eosinophils # 0.2 10*3/uL (0.0-0.87); Eosinophils % 2.8 % (0.00-10.9); Hematocrit 29.3 VOL% (35.7-47.0); Hemoglobin 9.3 GM/DL (12.0-16.0); Immature Granulocytes % 0.5 %; Immature Granulocytes Absolute 0.03 #; Lymphocytes # 1.3 10*3/uL (1.4-4.0); Lymphocytes % 19.9 % (21.3-54.2); Mean Corpuscular HGB Conc 31.7 GM/DL (32-36); Mean Corpuscular Hemoglobin 26 PG (27-34); Mean Platelet Volume 12.1 FL (9.6-12.0); Monocytes # 0.4 10*3/uL (0.11-0.8); Neutrophils # 4.6 10*3/uL (1.4-7.4); Neutrophils % 70.6 % (38.7-73.9); Platelet Count 130 T/CUMM (130-400); Red Blood Count 3.53 MC/CUMM (3.8-5.5); Red Cell Distribution Width 14.5 % (9.3-17.3); White Blood Count 6.5 T/CUMM (4-12)
[2016-09-22 06:58] LABS: Calcium 8.1 MG/DL (8.5-10.1); Potassium 3.6 MMOL/L (3.5-5.1)
[2016-09-22] MEDS: PANTOPRAZOLE 40 MG VIAL IV SCH ×2 (08:01→21:31)
[2016-09-22] MEDS: FAMOTIDINE 20 MG/2 ML VIAL IV SCH ×2 (08:01→21:29)
[2016-09-22] MEDS: INSULIN LISPRO 100 UNIT/ML SUBCUT SCH ×4 (08:01→21:07)
[2016-09-22] MEDS: APIXABAN 5 MG TABLET PO SCH ×2 (08:02→21:06)
[2016-09-22] MEDS: BISACODYL 5 MG TABLET PO SCH (08:02)
[2016-09-22] MEDS: ASPIRIN EC 81 MG TABLET PO SCH (08:02)
[2016-09-22] MEDS: CLOPIDOGREL 75 MG TABLET PO SCH (08:02)
[2016-09-22] MEDS: CILOSTAZOL 50 MG TABLET PO SCH ×2 (08:02→21:07)
[2016-09-22] MEDS: DULoxetine 30 MG CAPSULE PO SCH ×2 (08:02→21:06)
[2016-09-22] MEDS: ALLOPURINOL 300 MG TABLET PO SCH (08:03)
[2016-09-22] MEDS: VICTOZA SUBCUT SCH (08:03)
[2016-09-22] MEDS: IBUPROFEN 600 MG TABLET PO PRN (08:47)
--- NOTE | 2016-09-22 10:32 | Urology Progress Note ---
Assessment and Plan (1) Bladder distention Status: Acute Assessment and plan: Leave [facility] until she gets out of the ICU and give her a voiding trial. Current Visit: Yes Urology - PN: Subj Interval history: Seeing patient in ICU. She is going upstairs. Urine culture noted at 10 to the fifth colonies of E. coli. Sensitive to the antibiotics. As far as I am concerned, the catheter can be removed and we will give her a voiding trial. She is on numerous medications and cause urinary retention. And I suggest limiting some of them. Namely Lyrica, Cymbalta etc. We will perform intermittent catheterization if needed. I will be back on 09/26/16. Urologist research instrumentation technician is available if needed. Exam - Constitutional Vitals: Period Temp Pulse Resp BP Sys/Lozoya Pulse Ox Last 24 Hr 97.6 F-102.4 F 76-99 13-22 98-166/51-98 92-100 Results - Labs CBC & BMP: 09/22/16 05:47 09/22/16 05:47
--- NOTE | 2016-09-22 12:10 | Sleep Medicine Progress Note ---
Assessment and Plan (1) Obstructive sleep apnea Status: Acute Assessment and plan: Patient does seem to be doing better with compliance with CPAP but her obstructive sleep apnea is uncontrolled with auto titration CPAP. We will switch her to auto titration BiPAP and schedule her for outpatient sleep study after discharge. Thank you for this consult and the opportunity to participate in her care. Current Visit: Yes (2) Congestive heart failure (CHF) Status: Acute Current Visit: Yes (3) Diabetes mellitus Status: Acute Current Visit: Yes Sleep Medicine Subjective Interval history: Patient did do a better job of sleeping with CPAP last night. She was on auto titrated and best results were seen at 12.5 cm. She actually slept with it for over 4 hours. However, she did have some significant mask leak and had an average AHI of 36. This is certainly not an ideal result with CPAP. She had difficulty on her titration with her original diagnosis and treatment and she needs to get back into the sleep lab and be reevaluated and re-titrated. We will set this up after discharge. I will switch her to an auto titration BiPAP device as well and see if she does better with that while admitted. Exam (Progress Note) - Constitutional Vitals: Period Temp Pulse Resp BP Sys/Lozoya Pulse Ox Last 24 Hr 97.6 F-102.4 F 76-99 12-22 98-166/60-98 92-100 Exam: She is alert and responsive in no acute distress. Chest with good air movement and no focal wheeze or rhonchi. Cardiac exam reveals a regular rhythm without murmur or gallop. Abdomen soft nontender extremities without increased edema. Results - Labs CBC & BMP: 09/22/16 05:47 09/22/16 05:47 Lab Results: I have reviewed the past 24 hour labs
--- NOTE | 2016-09-22 17:26 | Hospitalist Progress Note ---
Assessment and Plan (1) Septic shock Status: Acute Assessment and plan: Resolved, cont meropenem Current Visit: Yes (2) Ileus Status: Acute Assessment and plan: secondary to resolving salmonella infection. resolved Current Visit: Yes (3) Bladder distention Status: Acute Assessment and plan: Dr Richardson recommends decreasing [facility] and doing bladder trials when out of ICU. Current Visit: Yes (4) Hypotension Status: Acute Assessment and plan: resolved Current Visit: Yes (5) Pneumonia Status: Acute Assessment and plan: switch to meropenem due to sensitivities Current Visit: Yes (6) Congestive heart failure (CHF) Status: Acute Assessment and plan: echocardiogram EF 55%, BNP normal no evidence suggest chronic or acute heart failure Current Visit: Yes (7) Diabetes mellitus Status: Acute Assessment and plan: Start Lantus 10 units tonight Current Visit: Yes (8) Urinary tract infection due to ESBL Klebsiella Status: Acute Assessment and plan: switch to meropenem Current Visit: Yes (9) RAFAELA (obstructive sleep apnea) Status: Acute Assessment and plan: Switch her CPAP to BiPAP at night. Current Visit: Yes Hospitalist: Subjective Interval history: Patient more alert and oriented this morning. She slept with her auto titrating CPAP last night and did well. She said she felt better but Dr. Peng said she needs to be on auto titrating BiPAP. Thanks to Dr. Peng for his help. Exam - Constitutional Vitals: Period Temp Pulse Resp BP Sys/Lozoya Pulse Ox Last 24 Hr 97.6 F-102.4 F 76-100 12-22 98-174/60-95 92-100 Exam: Heart Rate-[RRR] Lungs-[CTAB GI-[+bs soft, NT] Ext-[no edema] Neuro [Motor 5/5], [alert and oriented times 3] psych [normal mood and affect] General [no acute distress] Results - Labs CBC & BMP: 09/22/16 05:47 09/22/16 05:47 Lab Results: I have reviewed the past 24 hour labs Labs: Will negative for C. difficile, blood cultures 2 negative no growth, urine culture growing ESBL Klebsiella - Diagnostic Findings Procedure: Ultrasound: report reviewed by me (Pinson nephrosis but has evidence of fatty liver) Quality Measures - Stroke Presenting Symptoms: Right hemiparesis
[2016-09-22] MEDS: ALBUTEROL/IPRATROPIUM 3 ML NEB RESP TX SCH ×2 (19:10→23:09)
[2016-09-22] MEDS: MEROPENEM 1,000 MG in SODIUM CHLORIDE 0.9% 100 ML IV SCH (19:20)
[2016-09-22] MEDS: PRAVASTATIN 40 MG TABLET PO SCH (21:06)
[2016-09-22] MEDS: INSULIN GLARGINE 100 UNIT/ML SUBCUT SCH (21:07)
[2016-09-23] MEDS: METOCLOPRAMIDE 10 MG/2 ML VIAL IV SCH ×5 (01:45→23:43)
[2016-09-23] MEDS: MEROPENEM 1,000 MG in SODIUM CHLORIDE 0.9% 100 ML IV SCH ×3 (01:59→17:42)
[2016-09-23] MEDS: ALBUTEROL/IPRATROPIUM 3 ML NEB RESP TX SCH ×6 (02:59→23:06)
[2016-09-23 03:23] LABS: Basophils % 0.3 % (0.0-0.8); Eosinophils # 0.1 10*3/uL (0.0-0.87); Eosinophils % 0.8 % (0.00-10.9); Hematocrit 30.6 VOL% (35.7-47.0); Hemoglobin 10.2 GM/DL (12.0-16.0); Immature Granulocytes % 0.4 %; Immature Granulocytes Absolute 0.03 #; Lymphocytes # 1.1 10*3/uL (1.4-4.0); Lymphocytes % 15.4 % (21.3-54.2); Mean Corpuscular HGB Conc 33.3 GM/DL (32-36); Mean Corpuscular Hemoglobin 26 PG (27-34); Mean Corpuscular Volume 79.3 FL (87-102); Mean Platelet Volume 12.2 FL (9.6-12.0); Monocytes # 0.3 10*3/uL (0.11-0.8); Monocytes % 4.6 % (1.7-12.7); Neutrophils # 5.6 10*3/uL (1.4-7.4); Neutrophils % 78.5 % (38.7-73.9); Platelet Count 178 T/CUMM (130-400); Red Blood Count 3.86 MC/CUMM (3.8-5.5); Red Cell Distribution Width 14.3 % (9.3-17.3); White Blood Count 7.2 T/CUMM (4-12)
[2016-09-23 03:50] LABS: Calcium 9.2 MG/DL (8.5-10.1); Osmolality,Calculated 282.3 MOS/KG (273-304)
[2016-09-23] MEDS: ASPIRIN EC 81 MG TABLET PO SCH (09:58)
[2016-09-23] MEDS: INSULIN LISPRO 100 UNIT/ML SUBCUT SCH ×4 (09:58→21:16)
[2016-09-23] MEDS: CILOSTAZOL 50 MG TABLET PO SCH ×2 (09:58→21:13)
[2016-09-23] MEDS: BISACODYL 5 MG TABLET PO SCH (09:59)
[2016-09-23] MEDS: DULoxetine 30 MG CAPSULE PO SCH ×2 (09:59→21:14)
[2016-09-23] MEDS: ALLOPURINOL 300 MG TABLET PO SCH (09:59)
[2016-09-23] MEDS: CLOPIDOGREL 75 MG TABLET PO SCH (10:00)
[2016-09-23] MEDS: APIXABAN 5 MG TABLET PO SCH ×2 (10:00→21:13)
[2016-09-23] MEDS: PANTOPRAZOLE 40 MG VIAL IV SCH ×2 (10:04→21:53)
[2016-09-23] MEDS: FAMOTIDINE 20 MG/2 ML VIAL IV SCH ×2 (10:06→21:51)
[2016-09-23] MEDS: VICTOZA SUBCUT SCH (10:56)
--- NOTE | 2016-09-23 16:53 | Hospitalist Progress Note ---
Assessment and Plan - Time spent with patient Time spent with patient: Greater than 30 minutes (1) Diarrhea Status: Acute Assessment and plan: We will obtain stool studies. Current Visit: Yes (2) Pneumonia Status: Acute Assessment and plan: Continue antibiotics. Current Visit: Yes (3) Urinary tract infection due to ESBL Klebsiella Status: Acute Assessment and plan: Continue antibiotics. Current Visit: Yes (4) Diabetes mellitus Status: Acute Assessment and plan: Well-controlled continue current management. Current Visit: Yes (5) CAD (coronary artery disease) Status: Acute Assessment and plan: Continue medications. Current Visit: Yes Hospitalist: Subjective Interval history: Patient states she has diarrhea and feels yucky. She was recently transferred up from the ICU where she was admitted for pneumonia. Currently she is stable. Exam - Constitutional Vitals: Period Temp Pulse Resp BP Sys/Lozoya Pulse Ox Last 24 Hr 97.7 F-99.0 F 81-106 12-106 142-164/73-83 92-99 General appearance: no acute distress - Head Head exam: Present: normocephalic, atraumatic - Eye Eye exam: Present: EOMI Pupils: Present: HOWIE - ENT ENT exam: Present: normal exam - Neck Neck exam: Present: normal inspection - Respiratory Respiratory exam: Present: clear to auscultation bilaterally. Absent: rhonchi, wheezes - Cardiovascular Cardiovascular exam: Present: regular rate and rhythm. Absent: gallop, rubs, systolic murmur - GI/Abdominal GI/Abdominal exam: Present: normal bowel sounds, soft. Absent: distended, firm , guarding, tenderness, rebound - Extremities Exam Extremities exam: Present: normal inspection. Absent: calf tenderness, edema Results - Labs CBC & BMP: 09/23/16 02:32 09/23/16 02:32 Lab Results: I have reviewed the past 24 hour labs Quality Measures - Stroke Presenting Symptoms: Right hemiparesis
[2016-09-23] MEDS: POTASSIUM CHLORIDE RIDER 10 MEQ in PREMIX 1 EACH IV SCH ×3 (19:10→23:43)
[2016-09-23] MEDS: PRAVASTATIN 40 MG TABLET PO SCH (21:13)
[2016-09-23] MEDS: INSULIN GLARGINE 100 UNIT/ML SUBCUT SCH (21:14)
[2016-09-23] MEDS: IBUPROFEN 600 MG TABLET PO PRN (23:04)
[2016-09-24] MEDS: MEROPENEM 1,000 MG in SODIUM CHLORIDE 0.9% 100 ML IV SCH ×3 (02:19→17:22)
[2016-09-24] MEDS: ALBUTEROL/IPRATROPIUM 3 ML NEB RESP TX SCH ×4 (03:43→15:01)
[2016-09-24 07:47] LABS: Osmolality,Calculated 287.1 MOS/KG (273-304)
[2016-09-24] MEDS: METOCLOPRAMIDE 10 MG/2 ML VIAL IV SCH ×2 (07:56→12:10)
[2016-09-24] MEDS: INSULIN LISPRO 100 UNIT/ML SUBCUT SCH ×3 (08:26→16:54)
[2016-09-24] MEDS: DULoxetine 30 MG CAPSULE PO SCH (09:32)
[2016-09-24] MEDS: APIXABAN 5 MG TABLET PO SCH (09:32)
[2016-09-24] MEDS: CILOSTAZOL 50 MG TABLET PO SCH (09:32)
[2016-09-24] MEDS: BISACODYL 5 MG TABLET PO SCH (09:32)
[2016-09-24] MEDS: CLOPIDOGREL 75 MG TABLET PO SCH (09:32)
[2016-09-24] MEDS: ASPIRIN EC 81 MG TABLET PO SCH (09:32)
[2016-09-24] MEDS: ALLOPURINOL 300 MG TABLET PO SCH (09:32)
[2016-09-24] MEDS: PANTOPRAZOLE 40 MG VIAL IV SCH (09:53)
[2016-09-24] MEDS: FAMOTIDINE 20 MG/2 ML VIAL IV SCH (09:55)
[2016-09-24 10:18] VITALS: BP 145/80
[2016-09-24] MEDS: VICTOZA SUBCUT SCH (11:42)
[2016-09-24] MEDS ORDERED: POTASSIUM CHLORIDE 20 MEQ PACK PO ONE (13:52)
--- NOTE | 2016-09-24 15:38 | Discharge Summary ---
Diagnosis - Discharge Diagnosis (1) Diarrhea Status: Acute (2) Pneumonia Status: Acute (3) Urinary tract infection due to ESBL Klebsiella Status: Acute (4) Diabetes mellitus Status: Acute (5) CAD (coronary artery disease) Status: Acute Discharge Plan - Discharge Data Disposition: Disch To Home/Self Care Condition at Discharge: Stable Discharge Diet: advance to your usual diet - Discharge Medications No Action Aspirin EC Tab 325 mg PO DAILY Duloxetine HCl [Cymbalta] 60 mg PO BID Furosemide Tab [Lasix Tab] 40 mg PO BID Clopidogrel [Plavix] 75 mg PO DAILY Cilostazol [Pletal] 50 mg PO BID Carvedilol [Coreg] 25 mg PO BID Pregabalin [Lyrica] 150 mg PO BID Pantoprazole Tab [Protonix Tab] 40 mg PO DAILY Zolpidem [Ambien] 10 mg PO BEDTIME PRN PRN Reason: Sleep Tramadol HCl [Tramadol Tab] 50 mg PO TID PRN PRN Reason: Pain Nitroglycerin [Nitroglycerin SL Tab] 0.4 mg SL Q5M PRN #25 tablet PRN Reason: Chest Pain Insulin Degludec [Tresiba Flextouch U-200] 30 unit SUBCUT BEDTIME Spironolactone 25 mg PO DAILY Pravastatin Sodium 80 mg PO BEDTIME Ondansetron Tab [Zofran Tab] 4 mg PO Q4H PRN PRN Reason: Nausea/Vomiting Apixaban [Eliquis] 5 mg PO BID fentaNYL 25 MCG/HR PATCH [Duragesic 25 Patch] 1 patch TRANSDERM Q3DAY Liraglutide [Victoza 3-Yovany] 1.2 mg SUBCUT QAM Allopurinol 300 mg PO DAILY - Follow Up or Referral - Forms/Instructions Exam - Constitutional Vitals: Period Temp Pulse Resp BP Sys/Lozoya Pulse Ox Last 24 Hr 97 F-98.4 F 67-113 12-20 141-190/53-85 90-107 Discharge Results Procedures and tests throughout hospitalization: Pending Orders 09/20/16 10:47 Blood Culture Stat 09/23/16 12:00 Sputum Culture and Gram Stain Stat 09/23/16 16:57 C. Diff Toxins A & B Routine Stool Culture Routine Stool for WBCs Routine Labs on day of discharge: Labs from last 24 hours 09/24/16 09/24/16 09/24/16 11:46 07:51 06:54 Sodium 142 Potassium 3.0 L Chloride 101 Carbon Dioxide 29 Anion Gap 15.0 BUN 8 Creatinine 0.70 GFR Calculation 102 BUN/Creatinine Ratio 11.00 Glucose 220 H POC Glucose 212 H 231 H Calculated Osmolality 287.1 Calcium 9.0 09/23/16 09/23/16 20:17 16:29 Sodium Potassium Chloride Carbon Dioxide Anion Gap BUN Creatinine GFR Calculation BUN/Creatinine Ratio Glucose POC Glucose 176 H 274 H Calculated Osmolality Calcium Preliminary micro results at discharge 09/20/16 10:47 Blood Culture - Preliminary Blood No growth at 3 days 09/20/16 10:47 Blood Culture - Preliminary Blood No growth at 3 days DS: Provider Date of admission: 09/20/16 12:33 Primary care physician: . No PCP Attending physician on admission: Xenia Gonsalez MD Consults: 09/20/16 14:06 Consult to Physician [CONS] Routine Comment: urinary retention Consulting Provider: Rohan Richardson 09/20/16 18:21 Consult to Case Mgmt/Social Srvs [CONS] Routine Reason for Case Mgmt/Social Srvs: Other Consult Comment: advance directive information Consult to Dietitian [CONS] Routine Reason for Dietitian: Diet Recommendations Consult Comment: diabetic, on low carb regimen 09/21/16 10:58 Consult to Physical Therapy [CONS] Routine Reason for Physical Therapy: Evaluate and Treat Consult to Sleep Center [CONS] Routine Reason for Sleep Center: Sleep Center Physician Consult Comment: huma, ?not wanting to wear mask Discharging clinician: Aracely Interiano MD Expected date of discharge: 09/24/16
--- NOTE | 2016-09-24 16:07 | Discharge Summary ---
Hospital Course - Hospital Course Hospital Course: Ms. Romo presented with weakness and was admitted to the intensive care unit with septic shock secondary to pneumonia. She was initiated on pressor support and broad-spectrum antibiotics. She was noted to have left-sided weakness and slurred speech she had an MRI of her brain which revealed no evidence of acute intracranial pathology. Echocardiogram revealed moderate Asher increased septal wall thickness normal systolic function and mildly abnormal diastolic function. Urology was consulted for urinary retention and had a [facility] placed. Her condition in the intensive care unit improved with broad-spectrum antibiotics she was weaned off of her pressor support and eventually transferred to the floor. She was seen in consultation by sleep services who will see her as an outpatient. She had urine culture 3 days prior to arriving at the floor which returned Klebsiella pneumonia ESBL and her antibiotics were tailored to this. She received about 3 days worth of antibiotics and I recommended she stay for additional days however she was adamant that she will leave regardless. I explained to the patient that there are no oral antibiotics we can use to continue treatment of her UTI and she understood consequences of leaving early without receiving for treatment which includes potential . I instructed the patient if she develops a fever or confusion or dysuria or hematuria to return to the emergency department. I spent 38 minutes coordinating this discharge. - Time spent with patient Time with patient DS: Greater than 30 minutes Diagnosis - Discharge Diagnosis (1) Diarrhea Status: Acute (2) Pneumonia Status: Acute (3) Urinary tract infection due to ESBL Klebsiella Status: Acute (4) Diabetes mellitus Status: Acute (5) CAD (coronary artery disease) Status: Acute Specialty Discharge - Follow Up or Referrals Follow up with: Juliet Peng MD [Physician] - 2 Weeks Discharge Plan - Discharge Data Disposition: Disch To Home/Self Care Condition at Discharge: Stable Discharge Diet: advance to your usual diet Activity: resume usual activities as tolerated - Discharge Medications Continue Aspirin EC Tab 325 mg PO DAILY Duloxetine HCl [Cymbalta] 60 mg PO BID Furosemide Tab [Lasix Tab] 40 mg PO BID Clopidogrel [Plavix] 75 mg PO DAILY Cilostazol [Pletal] 50 mg PO BID Carvedilol [Coreg] 25 mg PO BID Pregabalin [Lyrica] 150 mg PO BID Pantoprazole Tab [Protonix Tab] 40 mg PO DAILY Zolpidem [Ambien] 10 mg PO BEDTIME PRN PRN Reason: Sleep Tramadol HCl [Tramadol Tab] 50 mg PO TID PRN PRN Reason: Pain Nitroglycerin [Nitroglycerin SL Tab] 0.4 mg SL Q5M PRN #25 tablet PRN Reason: Chest Pain Insulin Degludec [Tresiba Flextouch U-200] 30 unit SUBCUT BEDTIME Spironolactone 25 mg PO DAILY Pravastatin Sodium 80 mg PO BEDTIME Ondansetron Tab [Zofran Tab] 4 mg PO Q4H PRN PRN Reason: Nausea/Vomiting Apixaban [Eliquis] 5 mg PO BID fentaNYL 25 MCG/HR PATCH [Duragesic 25 Patch] 1 patch TRANSDERM Q3DAY Liraglutide [Victoza 3-Yovany] 1.2 mg SUBCUT QAM Allopurinol 300 mg PO DAILY - Follow Up or Referral Follow Up: Juliet Peng MD [Physician] - 2 Weeks - Forms/Instructions Exam - Constitutional Vitals: Period Temp Pulse Resp BP Sys/Lozoya Pulse Ox Last 24 Hr 97 F-98.4 F 67-113 12-20 141-190/53-85 90-107 General appearance: normal weight, no acute distress - Head Head exam: Present: normal inspection, normocephalic, atraumatic - Eye Eye exam: Present: EOMI Pupils: Present: HOWIE - ENT ENT exam: Present: normal exam - Neck Neck exam: Present: normal inspection - Respiratory Respiratory exam: Present: clear to auscultation bilaterally. Absent: accessory muscle use, prolonged expiratory phase, wheezes - Cardiovascular Cardiovascular exam: Present: regular rate and rhythm. Absent: bradycardia, irregular rhythm, systolic murmur - GI/Abdominal GI/Abdominal exam: Present: normal bowel sounds. Absent: ascites, hypoactive bowel sounds - Extremities Exam Extremities exam: Present: normal inspection Discharge Results Procedures and tests throughout hospitalization: Pending Orders 09/20/16 10:47 Blood Culture Stat 09/23/16 12:00 Sputum Culture and Gram Stain Stat 09/23/16 16:57 C. Diff Toxins A & B Routine Stool Culture Routine Stool for WBCs Routine Labs on day of discharge: Labs from last 24 hours 09/24/16 09/24/16 09/24/16 11:46 07:51 06:54 Sodium 142 Potassium 3.0 L Chloride 101 Carbon Dioxide 29 Anion Gap 15.0 BUN 8 Creatinine 0.70 GFR Calculation 102 BUN/Creatinine Ratio 11.00 Glucose 220 H POC Glucose 212 H 231 H Calculated Osmolality 287.1 Calcium 9.0 09/23/16 09/23/16 20:17 16:29 Sodium Potassium Chloride Carbon Dioxide Anion Gap BUN Creatinine GFR Calculation BUN/Creatinine Ratio Glucose POC Glucose 176 H 274 H Calculated Osmolality Calcium Preliminary micro results at discharge 09/20/16 10:47 Blood Culture - Preliminary Blood No growth at 3 days 09/20/16 10:47 Blood Culture - Preliminary Blood No growth at 3 days DS: Provider Date of admission: 09/20/16 12:33 Primary care physician: . No PCP Attending physician on admission: Xenia Gonsalez MD Consults: 09/20/16 14:06 Consult to Physician [CONS] Routine Comment: urinary retention Consulting Provider: Rohan Richardson 09/20/16 18:21 Consult to Case Mgmt/Social Srvs [CONS] Routine Reason for Case Mgmt/Social Srvs: Other Consult Comment: advance directive information Consult to Dietitian [CONS] Routine Reason for Dietitian: Diet Recommendations Consult Comment: diabetic, on low carb regimen 09/21/16 10:58 Consult to Physical Therapy [CONS] Routine Reason for Physical Therapy: Evaluate and Treat Consult to Sleep Center [CONS] Routine Reason for Sleep Center: Sleep Center Physician Consult Comment: huma, ?not wanting to wear mask Discharging clinician: Aracely Interiano MD Expected date of discharge: 09/24/16
== END 2016-09-24 17:22 | disposition home or self-care (01) | DRG 871 ==
LOC: EDUNIT# → EDBD → N.ED 10:00 → SUATTDRO 12:33 → N.EDINP 12:33 → N.ICU 16:36 → N.2E 09-22 14:53
PROVIDERS: ADMIT Internal Medicine; ATTEND Internal Medicine